=== PATIENT | male | born 1930 | race Caucasian/White ===

== ENCOUNTER 2017-02-08 09:10 | Observation (INO) | payer MEDICARE ==
[~2017-02-08] VITALS: Ht 175.3 cm; Wt 64.5 kg
[~2017-02-08 09:10] MED LIST: /WARF25TA PO; ALPR0.5T3 PO; AMLO5TAB2 PO; ASPI325T PO; CALC-136 PO; CARV6.25 PO; CIPR500T89 PO; COLA50CA3 PO; DRIS50002 PO; FISH1000 PO; FLAG500T PO; LANO0.1211 OR; LISI10TA4 PO; LOPR50TA PO; PERCOCET PO; TYLE325T5 PO; VITA100037 PO; VITA100L PO; VITA500046 PO; XANA0.5T PO
[2017-02-08] MEDS ORDERED: FLOM5CAP PO (09:29)
[2017-02-08] MEDS ORDERED: ASPI325T24 PO (09:29)
[2017-02-08 10:05] LABS: BASO % 0.4 % (0.0-1.0); EOS # 0.1 K/mm3 (0.0-0.50); EOS % 1.1 % (0.0-3.0); LARGE UNSTAINED CELL # 0.2 K/mm3 (0.0-0.4); LARGE UNSTAINED CELL % 2.8 % (0.0-4.0); LYMPH # 1.6 K/mm3 (1.5-4.5); LYMPH % 21.5 % (24.0-44.0); MEAN CORPUSCULAR HEMOGLOBIN 30.4 pg (27.0-33.0); MEAN CORPUSCULAR HGB CONC 32.3 g/dl (32.0-36.5); MEAN CORPUSCULAR VOLUME 94.2 fl (80.0-96.0); MONO # 0.6 K/mm3 (0.0-0.8); MONO % 9.7 % (0.0-5.0); NEUTROPHILS # 4.3 K/mm3 (1.8-7.7); NEUTROPHILS % 64.5 % (36.0-66.0); PLATELET COUNT, AUTOMATED 163 k/mm3 (150-450); RED CELL DISTRIBUTION WIDTH 13.1 % (11.5-14.5); WHITE BLOOD COUNT 6.6 K/mm3 (4.0-10.0)
[2017-02-08 10:09] LABS: ANION GAP 5 MEQ/L (8-16); BLOOD UREA NITROGEN 22 MG/DL (7-18); CALCIUM LEVEL 9.5 MG/DL (8.8-10.2); CARBON DIOXIDE LEVEL 29 MEQ/L (21-32); CHLORIDE LEVEL 105 MEQ/L (98-107); CREATININE FOR GFR 0.98 MG/DL (0.70-1.30); GLOMERULAR FILTRATION RATE > 60.0 (>35); GLUCOSE, FASTING 127 MG/DL (83-110); POTASSIUM SERUM 4.6 MEQ/L (3.5-5.1); SODIUM LEVEL 139 MEQ/L (136-145)
--- NOTE | 2017-02-08 10:29 | REP ---
CT CERVICAL SPINE WITHOUT CONTRAST: HISTORY: Syncope. There is no acute fracture or subluxation. Disc bulges are present at the C3-4 and C4-5 levels. Disc bulges with associated osteophyte formation are present at the C5-6 and C6-7 levels. There is minimal narrowing of the spinal canal. Uncinate process and/or facet hypertrophy are present at the C2-3 through C7-T1 levels. These findings produce minimal to mild narrowing of the neural foramina. The C2-3 through C1-T1 intervertebral discs are decreased in height consistent with disc degeneration. Punctate calcifications are present in the thyroid gland. IMPRESSION: 1. There is no acute fracture or subluxation. 2. There is cervical spondylosis at the C2-3 through C7-T1 levels. Signed by Solo Cast MD 02/08/2017 10:32 A
--- NOTE | 2017-02-08 10:39 | REP ---
CT HEAD WITHOUT CONTRAST: HISTORY: Syncope. Areas of decreased attenuation are present in the periventricular and subcortical white matter. This represents small vessel ischemic disease. There is no intraparenchymal hemorrhage, mass or midline shift. The ventricular system and cortical sulci as well as subarachnoid space in the posterior fossa are dilated consistent with mild volume loss. There is no extracerebral collection. There is no fracture. Mucosal thickening is present in the ethmoid and left maxillary sinuses. Soft tissue swelling is present over the right parietal bone. IMPRESSION: 1. Small vessel ischemic disease. 2. Mild volume loss. Signed by Solo Cast MD 02/08/2017 10:40 A
--- NOTE | 2017-02-08 12:58 | REP ---
Portable chest, single AP view, the patient sitting, 12:49 p.m., 02/08/2017: Comparison is 12/18/2015. There is thoracic scoliosis convex right in the lower thoracic spine, unchanged. Lung rubio are clear. Cardiac size is normal. The penelope, mediastinum, bony thorax are unremarkable. Impression: Essentially negative portable chest. Signed by Cristofer Giron MD 02/08/2017 12:49 P
[2017-02-08] MEDS ORDERED: ALPR0.25 PO (13:42)
[2017-02-08] MEDS ORDERED: LISI-538 PO (13:42)
[2017-02-08] MEDS ORDERED: PHILCAP4 PO (13:43)
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
[2017-02-08 16:55] VITALS: BP 171/89
[2017-02-08] MEDS: HEPARIN SOD (PORCINE) 5000 UNITS/ML VIAL SQ SCH ×2 (17:46→21:14)
[2017-02-08 20:00] VITALS: BP_SYST 136; BP_SYST 156; BP_SYST 158; BP_DIAS 72; BP_DIAS 74; BP_DIAS 80
--- NOTE | 2017-02-08 20:21 | ECHO ---
DATE OF PROCEDURE: 02/08/2017 REFERRING PHYSICIAN: Dr. Jimenez PATIENT LOCATION: Emergency room department, room 20 REASON FOR ECHOCARDIOGRAM: Syncope. 2D MEASUREMENTS: IVS: 1.2 cm LV: 3.9 cm LVPW: 1.2 cm LA: 4.5 cm Aorta: 3.6 cm IVC: 0.9 cm DOPPLER MEASUREMENTS: Peak velocity across the aortic valve: 2.5 m/s Peak velocity across the LVOT: 0.88 m/s Peak gradient across the aortic valve: 25 mmHg Mean gradient across the aortic valve: 14 mmHg Mitral E: 1.26, Mitral A: 1.47, with a ratio of 0.86 Maximum tricuspid valve velocity: 2.9 m/s 2D COMMENTS: 1. Normal left ventricular size, with probably mildly increased left ventricular wall thickness. Left ventricular systolic function is normal with an estimated global left ventricular systolic ejection fraction of 65 to 70%. 2. Mildly dilated left atrium. The right atrium also may be mildly enlarged. Normal right ventricle. 3. The atrial septum appeared to be normal without evidence of defect or shunt. 4. Normal aortic root. 5. No pericardial effusion seen. 6. Moderately calcified aortic valve with mildly restricted leaflet motion. Mildly calcified mitral annulus with normal anterior mitral valve leaflet motion. Normal tricuspid valve and pulmonic valve. The proximal pulmonary artery branches were not well visualized. 7. The inferior vena cava was not dilated. DOPPLER: It detects mild to moderate mitral regurgitation and moderate tricuspid regurgitation as well as trace pulmonic regurgitation. The calculated pulmonary artery systolic pressure varies between 40 to 50 mmHg. Abnormal relaxation pattern was noted across the mitral valve leaflets as well as the mitral valve annulus consistent with grade I left ventricular diastolic dysfunction. IMPRESSION: 1. Normal global left ventricular systolic function with probably mild concentric left ventricular hypertrophy. There are features of left ventricular diastolic dysfunction manifested by abnormal relaxation. 2. Aortic valve sclerosis with mild aortic stenosis, but no aortic regurgitation. 3. Mitral annulus calcification with mildly enlarged left atrium and mild to moderate mitral regurgitation. 4. Moderate tricuspid regurgitation with moderate pulmonary hypertension and subjectively mildly enlarged right atrium. MTDD
[2017-02-08] MEDS: CARVedilol 6.25 MG TAB PO SCH (21:14)
[2017-02-09] VITALS (8 sets, daily range): BP systolic 120–164; BP diastolic 61–91
[2017-02-09] MEDS: HEPARIN SOD (PORCINE) 5000 UNITS/ML VIAL SQ SCH ×3 (05:20→21:18)
[2017-02-09 07:53] LABS: MEAN CORPUSCULAR HEMOGLOBIN 31.1 pg (27.0-33.0); MEAN CORPUSCULAR HGB CONC 33.7 g/dl (32.0-36.5); MEAN CORPUSCULAR VOLUME 92.3 fl (80.0-96.0); RED CELL DISTRIBUTION WIDTH 13.3 % (11.5-14.5); WHITE BLOOD COUNT 8.9 K/mm3 (4.0-10.0)
[2017-02-09] MEDS: LISINOPRIL 20 MG TAB PO SCH (08:48)
[2017-02-09] MEDS: CARVedilol 6.25 MG TAB PO SCH ×2 (08:48→20:47)
[2017-02-09] MEDS: ASPIRIN 81 MG ENTERIC TAB PO SCH (08:48)
[2017-02-09] MEDS: TAMSULOSIN 0.4 MG CAP PO SCH (08:48)
--- NOTE | 2017-02-09 12:39 | IPN ---
DATE: 02/09/2017 86-year-old gentleman seen at bedside who had an episode of a fall which sounds like a syncopal episode yesterday resulting in a scalp laceration. He is doing well today. Denies any overnight issues. He has not had any changes in his EKG. He does have a history of atrial fibrillation and follows with Dr. Pacheco. He is not anticoagulated OBJECTIVE: Temperature 98.1, pulse 73, respiratory rate is 20, BP 157/75, SPO2 is 96% on room air. General: The patient appears to be in no acute distress. Is alert and oriented, pleasant. HEENT: The scalp wound does appear to be doing well. He does have ann marie in place. Eyes: Pupils equal and reactive to light and accommodation (SERGIO). Throat clear. Lungs: Clear. Heart: Regular rate and rhythm. Abdomen: Soft. Extremities: No edema, no calf tenderness. Pollution Control Chemist strength is equal. No motor sensory deficits. Cranial nerves II-XII grossly intact. LABORATORY DATA: White count 8.9, hemoglobin 13.2, platelets 139,000. Sodium 139, potassium 4.6, chloride 105, bicarb 29, anion gap 5, BUN 22, creatinine 0.98, glucose is 127, calcium 9.5, troponin less than 0.02. TSH 0.704 on admission. Chest x-ray with no acute cardiopulmonary processes noted. CT of the cervical spine with no acute fracture or subluxation. He does have some cervical spondylosis at C2-C3 and through C7-T1 levels. Head CT small vessel ischemic disease with mild volume loss, no acute findings. Echocardiogram done on 02/08/2017 shows an ejection fraction of 65-70%, normal global left ventricular systolic function, some probable mild concentric left ventricular hypertrophy, aortic valve sclerosis with mild aortic stenosis without any aortic regurgitation, mild annulus calcification, moderate tricuspid regurgitation with moderate pulmonary hypertension. ASSESSMENT/PLAN: 1. Syncopal episode. Has not had any overnight issues. Will continue his medications. Will touch base with Dr. Pacheco for appropriate followup. Will have him see physical therapy today and if he is ambulating well without any further issues will likely discharge him later today or tomorrow. 2. Hypertension, stable. 3. Systolic murmur. As mentioned with no acute findings on echo. He can followup with Dr. Pacheco. 4. Degenerative joint disease, stable. 5. Osteoporosis, history of falls and hip fracture in the past. The patient will be walked by physical therapy and see if he is safe for home discharge. 6. Prior history of atrial fibrillation. He has not had an episode in quite some time. We have not seen any atrial fibrillation on his telemetry nor on EKG. Follow with Dr. Pacheco outpatient. 7. Occipital scalp laceration with ann marie. Will need outpatient followup with staple removal in about 7-10 days. DISPOSITION: If he does well with physical therapy will likely discharge him home.
--- NOTE | 2017-02-09 13:27 | ECGEPIP ---
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
[2017-02-09 15:16] LABS: BLOOD UREA NITROGEN 16 MG/DL (7-18); CHLORIDE LEVEL 104 MEQ/L (98-107); CREATININE FOR GFR 0.92 MG/DL (0.70-1.30); GLOMERULAR FILTRATION RATE > 60.0 (>35); GLUCOSE, FASTING 115 MG/DL (83-110); SODIUM LEVEL 141 MEQ/L (136-145)
[2017-02-09 15:17] LABS: ANION GAP 5 MEQ/L (8-16); CALCIUM LEVEL 8.8 MG/DL (8.8-10.2); CARBON DIOXIDE LEVEL 32 MEQ/L (21-32)
[2017-02-10 02:00] VITALS: BP 103/64
[2017-02-10 06:00] VITALS: BP 142/71
[2017-02-10] MEDS: HEPARIN SOD (PORCINE) 5000 UNITS/ML VIAL SQ SCH (06:05)
[2017-02-10 06:37] VITALS: BP_SYST 112; BP_SYST 136; BP_SYST 141; BP_DIAS 60; BP_DIAS 61; BP_DIAS 65
--- NOTE | 2017-02-10 08:11 | IPN ---
DATE: 02/10/2017 86-year-old gentleman seen at bedside resting comfortably. Was admitted initially for what appeared to be a syncopal episode versus a mechanical fall. He did not have any events on telemetry yesterday. He was downgraded to the general medical floor but physical therapy felt that he was not safe for home discharge and would need a few more therapy treatments. This morning he appears to be doing well. He denies headache, change of vision, blurry vision, no nausea, vomiting and he was able to completely eat his morning breakfast. OBJECTIVE: Temperature is 96.8, pulse 72 and regular, respiratory rate is 18, BP 142/71. Orthostatics showed a supine BP of 136/61, sitting 141/65 and standing 112/60. By criteria, does appear to be slightly orthostatic when going from sitting to standing position. General: The patient appears to be in no acute distress. He is alert, oriented. HEENT: Unremarkable. His scalp wound does appear to be granulating well. He does have ann marie in place. Those will need to be removed in about 7-10 days. Lungs: Clear. Heart: Regular rate and rhythm. Abdomen: Soft. Extremities: No edema or calf tenderness. LABORATORY: White count is 8.9, hemoglobin 13.2, platelets 139,000. Sodium 141, potassium 4.0, chloride 104, bicarb 32, anion gap 5, BUN 16, creatinine 0.92, glucose 115. Troponin remained less than 0.02 yesterday and again he had no findings on telemetry. ASSESSMENT/PLAN: 1. Syncopal episode without any events noted on telemetry. His recent echo was unremarkable with the ejection fraction of 65-70%. He does appear to be slightly orthostatic today. He is not on any diuretics. He is rate controlled with his Coreg and lisinopril. We may want to educate him regarding his changing position to make sure that he takes this time with this. 2. Slight drop in his hemoglobin. This may be delusional effect. Will go ahead and do an occult stool and make sure that he is up-to-date with his colonoscopies. 3. Hypertension stable otherwise. 4. Degenerative joint disease with his back, stable. 5. History of osteoporosis. History of falls, hip fracture in the past. Again the patient will need to participate with physical therapy. Will need to be evaluated further to determine when he is safe for home discharge. 6. History of atrial fibrillation. He does appear to be rate controlled. 7. Occipital scalp laceration with ann marie. Ann Marie remain in place 7-10 days. This does not appear to be infected and it does appear to be granulating well. DISPOSITION: Will see how he does with physical therapy today. Anticipate home discharge in the next couple days.
[2017-02-10 08:39] VITALS: BP 134/73
[2017-02-10] MEDS: LISINOPRIL 20 MG TAB PO SCH (08:39)
[2017-02-10] MEDS: TAMSULOSIN 0.4 MG CAP PO SCH (08:39)
[2017-02-10] MEDS: ASPIRIN 81 MG ENTERIC TAB PO SCH (08:39)
[2017-02-10] MEDS: CARVedilol 6.25 MG TAB PO SCH (08:39)
[2017-02-10 10:00] VITALS: BP 124/60
--- NOTE | 2017-02-10 11:35 | ECGEPIP ---
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
--- NOTE | 2017-02-10 12:46 | DSES ---
DATE OF ADMISSION: 02/08/2017 DATE OF DISCHARGE: 02/10/2017 PRIMARY CARE PROVIDER: Dr. Villagomez BENZENE STILL UTILITY OPERATOR: Dr. Pacheco CONSULTANTS: None. PROCEDURES PERFORMED: None. COMPLICATIONS: None. ADMISSION/DISCHARGE DIAGNOSES: 1. Mechanical fall, syncope versus deconditioning. 2. Posterior scalp laceration resulting in staple placement. 3. Hypertension. 4. Degenerative joint disease. 5. History of osteoporosis status post hip fracture in the past. 6. History of atrial fibrillation, rate controlled. BRIEF HOSPITAL COURSE: Mr. Paredes is a pleasant, 86-year-old gentleman who presented to the emergency department on 02/08/2017 after having a mechanical fall as he was trying to walk back up from his basement. He stated that he felt unsteady, suddenly fell, hit the back of his head, questionable whether he had loss of consciousness. He did have ann marie that were placed. CT of the cervical spine and head CT did not show any acute fracture, subluxation or brain bleed. However, he was admitted to be watched on telemetry and did require physical therapy. He did not show any events on telemetry. His echocardiogram did not show any acute findings. He had an ejection fraction (EF) of 65-70%. I did discuss the case with Dr. Pacheco since the patient does have a prior history of a systolic murmur, and he suggested that the patient would followup with him as outpatient. He did not have any other demonstrative episodes. No significant findings on telemetry. He was kept another 24 hours for physical therapy, which worked with him today, did clear him safe for home, and he will be discharged with appropriate followup. Please refer the progress notes today for physical examination and labs. Discharge condition is good. DISPOSITION: Discharge to home. DISCHARGE MEDICATIONS: - Xanax 0.25 mg nightly - aspirin 325 mg nightly - Carvedilol 6.25 mg twice a day - lisinopril 20 mg daily - Milk of Magnesia one tablet daily as needed - Flomax 0.4 mg nightly - vitamin D 50,000 units monthly DISCHARGE INSTRUCTIONS: Discharge home. Activity as tolerated. Regular diet. Followup with his primary care provider in 2-[address] Pacheco in a week. I did not make any further adjustments for anticoagulation therapy due to the fact the patient is prone to falls. I will defer that to his primary care provider and Dr. Pacheco. He is instructed to seek medical attention if symptoms should worsen and he will need his ann marie removed in the next 7-10 days. He voices understanding. Discharge took 35 minutes. [place]
[2017-02-10 14:00] VITALS: BP 122/58
== END 2017-02-10 14:39 | disposition home or self-care (01) ==
LOC: M ED 10:22 → M ED INP 15:22 → M MSPAV 02-09 14:40
PROVIDERS: ATTEND Hospitalist
DX: R55 Syncope and collapse (principal); W19.XXXA Unspecified fall, initial encounter; S01.00XA Unspecified open wound of scalp, initial encounter; I48.91 Unspecified atrial fibrillation; G47.00 Insomnia, unspecified; E55.9 Vitamin D deficiency, unspecified; R01.1 Cardiac murmur, unspecified; Z79.899 Other long term (current) drug therapy; Z79.82 Long term (current) use of aspirin; Z87.891 Personal history of nicotine dependence; Y93.89 Activity, other specified; Y92.008 Other place in unspecified non-institutional (private) residence as the place of occurrence of the external cause; Y99.9 Unspecified external cause status
CPT/HCPCS: 12002; 36415; 70450; 71010; 72125; 80048; 82550; 82553; 84443; 84484; 85025; 85027; 93005; 93041; 93306; 94760; 96372; 97161; 97530; 99285; G0378; G8978; G8979; G8980

== ENCOUNTER → 2018-10-15 | Outpatient (REF) | payer MEDICARE ==
[~2018-10-15] MED LIST changes: +ALPR0.25 PO; +ASPI325T25 PO; -DRIS50002 PO; +DRIS50003 PO; +FLOM0.4C39 PO; +LISI-538 PO; +PHILCAP4 PO
== END ==
LOC: M LAB REF 15:36
PROVIDERS: ATTEND Nurse Practitioner Family
DX: L08.9 Local infection of the skin and subcutaneous tissue, unspecified (principal)